=== PATIENT | female | born 1990 | race Caucasian/White ===

== ENCOUNTER 2016-10-12 19:02 | Emergency (ER) | payer OTHER ==
[~2016-10-12] VITALS: Ht 170.2 cm; Wt 84.4 kg
[~2016-10-12 19:02] MED LIST: BENTYL20 M1 PO; DILAUDID2 MG PO; DOLOPHINE10 MG PO; FLEXERIL 5MG TAB5 MG PO; FLEXERIL10 MG PO; IBUPROFEN800 M1 PO; METHADONE HC10 MG/M1 PO; MOTRIN600 MG PO; MOTRIN800 MG PO; PERCOCET 5-3251 EACH PO; PRILOSEC40 M1 PO; VENTOLIN H0.09 MG/Ac PO; XANAX1 MG PO
[2016-10-12 19:19] VITALS: BP 117/74
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
[2016-10-12] MEDS ORDERED: ALEVE220 M1 PO (20:51)
--- NOTE | 2016-10-12 22:25 | RADIOLOGY REPORT ---
EXAMINATION: XR LUMBOSACRAL SPINE CLINICAL INFORMATION: Fall. Pain. COMPARISON: Lumbar spine 03/26/2014 TECHNIQUE: 2 views. FINDINGS: Transitional vertebrae is partially lumbarized S1. The left transverse process is free. No acute change. Vertebrae have normal height and alignment. Facet joints are normal. Normal sacroiliac joints. Compared to prior exam no change. IMPRESSION: Normal lumbar spine.
--- NOTE | 2016-10-12 22:27 | RADIOLOGY REPORT ---
EXAMINATION: XR PELVIS CLINICAL INFORMATION: Fall. Pain. COMPARISON: None TECHNIQUE: AP view of the pelvis. FINDINGS: The bones and soft tissues are normal. No fracture. Sacroiliac and hip joints are normal. Pubic symphysis is normal. No abnormal soft tissue calcifications. IMPRESSION: Normal pelvis.
[2016-10-12] MEDS ORDERED: CYCLOBENZAPRINE5 M2 PO (22:29)
[2016-10-12] MEDS ORDERED: DILAUDID2 M1 PO (22:29)
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
== END 2016-10-12 22:35 ==
LOC: ERH 19:02
DX: S16.1XXA Strain of muscle, fascia and tendon at neck level, initial encounter (principal); S39.012A Strain of muscle, fascia and tendon of lower back, initial encounter; W10.9XXA Fall (on) (from) unspecified stairs and steps, initial encounter
CPT/HCPCS: 72050; 72100; 72170

== ENCOUNTER 2017-10-30 13:52 | Emergency (ER) | payer OTHER ==
[~2017-10-30] VITALS: Ht 170.2 cm; Wt 86.2 kg
[~2017-10-30 13:52] MED LIST changes: +ALEVE220 M1 PO; +CYCLOBENZAPRINE5 M2 PO; +DILAUDID2 M1 PO
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
[2017-10-30] MEDS ORDERED: IBUPROFEN800 M1 PO (17:18)
[2017-10-30] MEDS ORDERED: ROBAXIN-750750 M1 PO (17:18)
[2017-10-30 17:25] VITALS: BP 142/78
== END 2017-10-30 17:29 ==
LOC: ERH 13:52
DX: M79.642 Pain in left hand (principal)
CPT/HCPCS: 73130-LT

== ENCOUNTER 2018-03-05 14:12 | Emergency (ER) | payer OTHER ==
[~2018-03-05] VITALS: Ht 170.2 cm; Wt 81.6 kg
[~2018-03-05 14:12] MED LIST changes: +ROBAXIN-750750 M1 PO
[2018-03-05 14:17] VITALS: BP 149/101
--- NOTE | 2018-03-05 14:59 | ED HAND/WRIST INJURY COMPLAINT ---
History of Present Illness General Chief Complaint: Laceration Procedure Stated Complaint: LAC TO R HAND FROM BROKEN GLASS Source: patient Exam Limitations: no limitations Vital Signs & Intake/Output Vital Signs & Intake/Output Vital Signs Date Time Temp Pulse Resp B/P B/P Pulse O2 O2 Flow FiO2 Mean Ox Delivery Rate 03/05 1417 96.3 80 15 149/101 97 Room Air Room Air ED Intake and Output 03/06 0000 03/05 1200 Intake Total Output Total Balance Patient 180 lb Weight Weight Reported by Patient Measurement Method Allergies Coded Allergies: No Known Allergies (03/05/18) Triage Note: PT TO ED FOR C/C OF LAC TO R HAND BETWEEN THUMB AND SECOND FINGER S/P CLEANING A GLASS. UNKNOWN LAST TETANUS SHOT. DRESSING APPLIED IN TRIAGE. MINIMAL BLEEDING NOTED. MEDICATED WITH MOTRIN IN TRIAGE. Triage Nurses Notes Reviewed? yes Occurred: just prior to arrival Duration: hour(s): Timing: single episode today Injury Environment: home Severity: moderate Pain/Injury Location: Right: Hand. Context: laceration Method of Injury: laceration : No Patient currently breastfeeds: No HPI: 27-year-old female presents emergency department complaining of laceration to right hand sustained at home prior to arrival. Patient states that she was possibly dishes when she was cut on a Piece of Glass from a wine glass. Patient was able to control bleeding prior to arrival in the emergency department. The patient denies difficulty with range of motion, numbness, tingling. Unsure of when last tetanus vaccine was. (Carmela Nettles) Past History Travel History Traveled to [place] past 21 day No Medical History Any Pertinent Medical History? 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 No (Carmela Nettles) Review of Systems Review of Systems Constitutional: Reports: no symptoms. EENTM: Reports: no symptoms. Respiratory: Reports: no symptoms. Cardiovascular: Reports: no symptoms. GI: Reports: no symptoms. Genitourinary: Reports: no symptoms. Musculoskeletal: Reports: see HPI. Skin: Reports: see HPI. Neurological/Psychological: Reports: no symptoms. Hematologic/Endocrine: Reports: no symptoms. Immunologic/Allergic: Reports: no symptoms. All Other Systems: Reviewed and Negative (Carmela Nettles) Physical Exam Physical Exam General Appearance: well developed/nourished, no apparent distress, alert, awake Head: atraumatic, normal appearance Eyes: Bilateral: normal appearance. Ears, Nose, Throat: hearing grossly normal Neck: normal inspection, supple, full range of motion Cardiovascular/Respiratory: normal peripheral pulses, no respiratory distress Back: normal inspection, normal range of motion Wrist Left: normal range of motion, normal inspection Wrist Right: normal range of motion, normal inspection Hand Left: normal inspection, normal range of motion Hand Right: 2 1cm lacerations to palmar aspect of hand adjacent to index finger MCP joint Neurologic/Tendon: normal sensation, normal motor functions, normal tendon functions Skin: lacerations as mentioned above (Carmela Nettles) Progress Differential Diagnosis: fracture, sprain, laceration, foreign body, tendon injury Plan of Care: Lacerations were irrigated and explored without removal or detection of foreign body. Patient has no bony tenderness, for this reason no x-ray imaging was obtained. Lacerations closed with 2 stitches each. Patient tolerated the procedure well. She was educated on signs and symptoms of infection. Patient will return in 7-10 days for removal of stitches. The patient agrees with the plan of care. Tetanus vaccine status updated today. (Carmela Nettles) Departure Departure Disposition: HOME OR SELF CARE Condition: Stable Clinical Impression Primary Impression: Hand laceration Qualifiers: Encounter type: initial encounter Foreign body presence: unspecified Laterality: right Qualified Code: S61.411A - Laceration without foreign body of right hand, initial encounter Referrals: Pavithra SANTO,Casey Murray (PCP/Family) Additional Instructions: Keep area clean and dry, he may rinse with soap and water. You may apply Neosporin topically for the next few days. Monitor for signs of infection such as redness, swelling, increasing pain, cloudy drainage from wound. Avoid heavy lifting or excessive use of right hand as stitches are over a joint and they may break if too much activity. Return in 7-10 days for removal of stitches. Return sooner if he have worsening symptoms such as signs of infection, broken stitches. Please note that there might be incidental findings in your evaluation that are unrelated to the current emergency department visit. Please notify your primary care doctor about this emergency department visit in order to obtain and review all of the testing performed so that these incidental findings can be monitored as needed. If you had an x-ray performed, please understand that some fractures may not be seen on the initial set of x-rays. If your symptoms persist you might need a repeat set of x-rays to check for such a fracture. If you had a laceration evaluated, please understand that foreign bodies such as glass or wood may not be visible to the naked eye or on plain x-rays. If the wound becomes red, swollen, increasingly more painful or if there is any drainage from the wound, please have it reevaluated by a physician for the possibility of a retained foreign body. If you're unable to follow up as outlined in the discharge instructions please return to the emergency department. Thank you for choosing the [facility] Emergency Department for your care. It was a pleasure to serve you today. Departure Forms: Customer Survey General Discharge Information (Tiffany KAM,Carmela Jarquin) PA/[employer] Co-Sign Statement Statement: ED Attending supervision documentation- [] I saw and evaluated the patient. I have also reviewed all the pertinent lab results and diagnostic results. I agree with the findings and the plan of care as documented in the PA's/[employer]'s documentation. [x] I have reviewed the ED Record and agree with the PA's/[employer]'s documentation. [] Additions or exceptions (if any) to the PAs/[employer]'s note and plan are summarized below: [] (Shawn Schuster DO) Procedures Laceration/Wound Repair Laceration/Wound Repair: Wound Location: right hand Wound's Depth, Shape: linear, 2 1cm lacerations Wound Length (cm): 1 Wound Explored: no foreign body removed, irrigated extensively Irrigated w/ Saline (ccs): 500 Betadine Prep? Yes Anesthesia: 1% lidocaine Volume Anesthetic (ccs): 4 Suture Size/Type: 5:0, nylon Number of Sutures: 4 Layer Closure? No Sterile Dressing Applied: Yes Date of Last Tetanus: 03/06/18 Tetanus Status: up to date Progress: 2 1 cm lacerations closed using 2 stitches for laceration. Patient tolerated procedure well. (Tiffany KAM,Carmela Jarquin)
== END 2018-03-05 16:03 ==
LOC: ERH 14:12
DX: S61.411A Laceration without foreign body of right hand, initial encounter (principal); W25.XXXA Contact with sharp glass, initial encounter; Y92.009 Unspecified place in unspecified non-institutional (private) residence as the place of occurrence of the external cause; Y93.G1 Activity, food preparation and clean up
CPT/HCPCS: 90714; J2001